=== PATIENT | male | born 1975 | race Caucasian/White ===

== ENCOUNTER 2020-04-12 07:34 | Inpatient (IN) ==
[2020-04-12] MEDS ORDERED: cefOXitin 2,000 MG in Water for inj. (sterile) 20 ML IVP ONE (07:50)
[2020-04-12] MEDS ORDERED: Ringers Solution, Lactated 1,000 ML IVC SCH (08:00)
[2020-04-12] MEDS ORDERED: Ondansetron ODT 4 MG TAB.RAPDIS SL ONE (08:13)
[2020-04-12] MEDS ORDERED: *HR* Meperidine 25 MG/ML SYRINGE IVP PRN (08:13)
[2020-04-12] MEDS ORDERED: *HR* Midazolam HCl 2 MG/2 ML VIAL IVP PRN (08:13)
[2020-04-12] MEDS ORDERED: *HR* FentaNYL (PF) 100 MCG/2 ML VIAL IVP PRN (08:13)
[2020-04-12] MEDS ORDERED: Acetaminophen IV 1,000 MG/100 ML BAG IVPB ONE (08:13)
[2020-04-12] MEDS ORDERED: *HR* OxyCODONE Immed Rel 5 MG TABLET PO PRN (08:13)
[2020-04-12] MEDS ORDERED: diazePAM 5 MG TABLET PO ONE (08:13)
[2020-04-12] MEDS ORDERED: *HR* Promethazine 25 MG/ML VIAL IVP PRN (08:13)
[2020-04-12] MEDS ORDERED: *HR* Rocuronium Bromide 50 MG/5 ML VIAL ONE ×2 (08:54→12:22)
[2020-04-12] MEDS ORDERED: Dexamethasone 4 MG/ML VIAL ONE (08:54)
[2020-04-12] MEDS ORDERED: Lidocaine -MPF 2% 2 ML VIAL ONE (08:54)
[2020-04-12] MEDS ORDERED: *HR* FentaNYL (PF) 100 MCG/2 ML VIAL ONE ×2 (08:54→13:53)
[2020-04-12] MEDS ORDERED: Lidocaine -MPF 4% 5 ML AMPUL ONE (08:54)
[2020-04-12] MEDS ORDERED: Ondansetron 4 MG/2 ML VIAL ONE (08:54)
[2020-04-12] MEDS ORDERED: *HR* Propofol 200 MG/20 ML VIAL IVP ONE (08:55)
[2020-04-12] MEDS ORDERED: *HR* HYDROMORPHONE 2 MG/ML VIAL ONE (10:30)
[2020-04-12] MEDS ORDERED: *HR* Magnesium Sulfate 1 GM/2 ML VIAL ONE ×2 (10:30→11:32)
[2020-04-12] MEDS ORDERED: *HR* Labetalol 20 MG/4 ML SYRINGE IVP ONE (13:12)
[2020-04-12] MEDS: *HR* HYDROmorphone PF 0.5 MG/0.5 ML SYRINGE IVP PRN ×4 (13:53→14:23)
[2020-04-12] MEDS ORDERED: Naloxone 0.4 MG/ML INJ IVP PRN (15:12)
[2020-04-12] MEDS: 0.9 % Sodium Chloride 1,000 ML IVC SCH (16:22)
[2020-04-12] MEDS: *HR* Heparin 5,000 UNIT/ML VIAL SQ SCH (18:08)
[2020-04-12] MEDS: Ketorolac 15 MG/ML VIAL IVP SCH (18:09)
[2020-04-12] MEDS ORDERED: Morphine Sulfate Oral CONC 10 MG/0.5 ML ORAL.SYG SL PRN (18:59)
[2020-04-13] MEDS: Ketorolac 15 MG/ML VIAL IVP SCH ×4 (00:49→20:07)
[2020-04-13] MEDS: Acetaminophen IV 1,000 MG/100 ML BAG IVPB SCH ×4 (00:49→17:54)
[2020-04-13 01:59] LABS: Basophils % 0.1 %; Hemoglobin 14.5 g/dL (12.9-16.9); Immature Granulocytes % 0.4 % (0-4); Lymphocytes # 0.2 K/mcL (0.6-4.6); Mean Corpuscular HGB Conc 34.5 g/dL (31.6-35.5); Mean Corpuscular Hemoglobin 32.4 pg (28.0-33.3); Mean Corpuscular Volume 93.8 fL (83.0-100.0); Monocytes # 0.6 K/mcL (0.0-1.3); Monocytes % 7.1 %; Neutrophils # 7.1 K/mcL (1.6-8.9); Platelet Count 217 K/mcL (140-400); Red Blood Count 4.48 M/mcL (4.19-5.50); Red Cell Distribution Width 11.9 % (11.5-14.5); Segmented Neutrophils % 89.4 %; White Blood Count 7.9 K/mcL (4.3-11.1)
[2020-04-13 02:22] LABS: BUN/Creatinine Ratio 14 (6-26); Blood Urea Nitrogen 16 mg/dL (6-20); Calcium 8.9 mg/dL (8.6-10.3); Carbon Dioxide 24 mEq/L (23-29); Chloride 102 mEq/L (98-107); Glucose 113 mg/dL (70-105); Osmolality,Calculated 284 (280-300); Potassium 3.9 mEq/L (3.5-5.1); Sodium 136 mEq/L (136-145); eGFR For African Americans > 60 (> 60); eGFR For Non-African Americans > 60 (> 60)
[2020-04-13] MEDS: 0.9 % Sodium Chloride 1,000 ML IVC SCH (04:00)
[2020-04-13] MEDS: *HR* Heparin 5,000 UNIT/ML VIAL SQ SCH ×2 (06:14→17:54)
[2020-04-13] MEDS ORDERED: *HR* FentaNYL (PF) 100 MCG/2 ML VIAL IVP ONE (09:41)
[2020-04-13] MEDS ORDERED: Ketorolac 15 MG/ML VIAL IVP ONE (09:46)
[2020-04-14] MEDS: Acetaminophen IV 1,000 MG/100 ML BAG IVPB SCH ×2 (00:48→06:42)
[2020-04-14] MEDS: Ketorolac 15 MG/ML VIAL IVP SCH ×4 (04:44→21:35)
[2020-04-14] MEDS: *HR* Heparin 5,000 UNIT/ML VIAL SQ SCH ×2 (06:37→18:27)
[2020-04-14] MEDS ORDERED: *HR* OxyCODONE/APAP 5/325 TABLET PO PRN (09:27)
[2020-04-14] MEDS ORDERED: Acetaminophen 325 MG TABLET PO PRN (09:27)
[2020-04-15] MEDS: Ketorolac 15 MG/ML VIAL IVP SCH ×2 (01:39→08:52)
[2020-04-15] MEDS: *HR* Heparin 5,000 UNIT/ML VIAL SQ SCH (05:27)
[2020-04-15 10:29] VITALS: BP 126/76
== END 2020-04-15 15:40 | disposition home or self-care (01) | DRG 331 ==
LOC: SAMDAY 07:34 → 3ANU 15:12
PROVIDERS: ADMIT Surgery; ATTEND Surgery

== ENCOUNTER 2020-05-26 07:32 | Inpatient (IN) ==
[2020-05-26] MEDS ORDERED: cefOXitin 2,000 MG in Water for inj. (sterile) 20 ML IVP ONE (08:01)
[2020-05-26] MEDS ORDERED: Ringers Solution, Lactated 1,000 ML IVC SCH (08:15)
[2020-05-26] MEDS ORDERED: *HR* Midazolam HCl 2 MG/2 ML VIAL ONE (08:33)
[2020-05-26] MEDS ORDERED: Dexamethasone 4 MG/ML VIAL ONE (08:33)
[2020-05-26] MEDS ORDERED: *HR* FentaNYL (PF) 100 MCG/2 ML VIAL ONE ×2 (08:33→09:52)
[2020-05-26] MEDS ORDERED: Lidocaine -MPF 2% 2 ML VIAL ONE (08:33)
[2020-05-26] MEDS ORDERED: *HR* Propofol 200 MG/20 ML VIAL IVP ONE ×2 (08:33→09:37)
[2020-05-26] MEDS ORDERED: Ondansetron 4 MG/2 ML VIAL ONE (08:33)
[2020-05-26] MEDS ORDERED: Famotidine 20 MG/2 ML VIAL IVP ONE (08:34)
[2020-05-26] MEDS ORDERED: *HR* Succinylcholine 200 MG/10 ML VIAL IVP ONE (08:34)
[2020-05-26] MEDS ORDERED: Lidocaine -MPF 4% 5 ML AMPUL ONE (08:34)
[2020-05-26] MEDS ORDERED: *HR* Rocuronium Bromide 50 MG/5 ML VIAL ONE (08:34)
[2020-05-26] MEDS ORDERED: Neostigmine Methylsulfate 3 MG/3 ML SYRINGE ONE (08:40)
[2020-05-26] MEDS ORDERED: *HR* OxyCODONE Immed Rel 5 MG TABLET PO ONE (09:00)
[2020-05-26] MEDS ORDERED: Pregabalin 75 MG CAPSULE PO ONE (09:00)
[2020-05-26] MEDS ORDERED: flumazeniL 0.5 MG/5 ML VIAL IVP PRN (09:05)
[2020-05-26] MEDS ORDERED: Naloxone 0.4 MG/ML INJ IVP PRN (09:05)
[2020-05-26] MEDS ORDERED: *HR* Meperidine 25 MG/ML SYRINGE IVP PRN (09:05)
[2020-05-26] MEDS ORDERED: Ondansetron 4 MG/2 ML VIAL IVP PRN ×2 (09:05→12:23)
[2020-05-26] MEDS ORDERED: Albuterol 2.5 MG/3 ML NEBULIZER IH PRN (09:05)
[2020-05-26] MEDS ORDERED: *HR* FentaNYL (PF) 100 MCG/2 ML VIAL IVP PRN (09:05)
[2020-05-26] MEDS ORDERED: Acetaminophen IV 1,000 MG/100 ML INFUS..BTL IVPB ONE ×2 (09:15→12:23)
[2020-05-26] MEDS ORDERED: Hydrocortisone Sodium Succ 100 MG/2 ML VIAL IVP ONE (09:15)
[2020-05-26] MEDS: *HR* HYDROmorphone PF 0.5 MG/0.5 ML SYRINGE IVP PRN ×4 (10:52→11:08)
[2020-05-26] MEDS: 0.9 % Sodium Chloride 1,000 ML IVC SCH (13:11)
[2020-05-26] MEDS: Ketorolac 15 MG/ML VIAL IVP PRN (22:36)
[2020-05-27] MEDS: 0.9 % Sodium Chloride 1,000 ML IVC SCH ×2 (03:24→15:30)
[2020-05-27] MEDS: Ketorolac 15 MG/ML VIAL IVP PRN ×2 (10:46→19:01)
[2020-05-27] MEDS: *HR* Heparin 5,000 UNIT/ML VIAL SQ SCH ×2 (15:35→22:35)
[2020-05-28] MEDS: *HR* Heparin 5,000 UNIT/ML VIAL SQ SCH ×3 (05:30→20:57)
[2020-05-28] MEDS: 0.9 % Sodium Chloride 1,000 ML IVC SCH (06:30)
[2020-05-28] MEDS: Ketorolac 15 MG/ML VIAL IVP PRN ×2 (08:22→23:11)
[2020-05-29] MEDS: *HR* Heparin 5,000 UNIT/ML VIAL SQ SCH (06:05)
[2020-05-29 07:29] VITALS: BP 115/65
[2020-05-29] MEDS ORDERED: Ibuprofen 800 MG TABLET PO ONE (08:45)
[2020-05-29] MEDS ORDERED: *HR* OxyCODONE Immed Rel 5 MG TABLET PO PRN (08:46)
== END 2020-05-29 14:58 | disposition home or self-care (01) | DRG 331 ==
LOC: SAMDAY 07:32 → 3ANU 12:28
PROVIDERS: ADMIT Surgery; ATTEND Surgery